=== PATIENT | male | born 1990 | race Caucasian/White ===

== ENCOUNTER 2022-01-30 15:44 | Emergency (ER) | payer BC, SELFPAY ==
[2022-01-30 16:17] LABS: Urine Blood Negative (Negative); Urine Glucose Negative (Negative); Urine Protein Negative (Negative)
[2022-01-30 16:23] LABS: Absolute Lymphocytes (CBC) 1.1 K/uL (0.7-4.9); Hematocrit 44.6 % (39.6-49.0); Lymphocytes % 10.4 % (15.3-44.8); MPV 9.5 fL (7.6-11.3); RBC Red Blood Cell Count 5.01 M/uL (4.33-5.43)
[2022-01-30 16:26] LABS: Protime INR 0.96
[2022-01-30 16:28] LABS: ALT/SGPT 67 U/L (12-78); AST/SGOT 29 U/L (15-37); Albumin 4.4 g/dL (3.4-5.0); Alkaline Phosphatase 54 U/L (45-117); BUN Blood Urea Nitrogen 13 mg/dL (7-18); Bicarbonate 27 mmol/L (21-32); Bilirubin Direct 0.1 mg/dL (0-0.2); Bilirubin Total 0.4 mg/dL (0.2-1.0); Glomerular Filtration Rate 69 ml/min (=/>90); Glucose Level 94 mg/dL (74-106); Potassium 4.1 mmol/L (3.5-5.1); Protein, Total 7.5 g/dL (6.4-8.2); Sodium Level 137 mmol/L (136-145)
[2022-01-30 16:33] LABS: Barbiturates NEGATIVE (NEGATIVE); Benzodiazepines NEGATIVE (NEGATIVE); Cocaine NEGATIVE (NEGATIVE); METHAMPHETAM NEGATIVE (NEGATIVE); Methadone NEGATIVE (NEGATIVE); Opiates NEGATIVE (NEGATIVE); Phencyclidine NEGATIVE (NEGATIVE); THC Cannibis POSITIVE (NEGATIVE)
--- NOTE | 2022-01-30 17:10 | RAD REPORT ---
EXAM DESCRIPTION: CT - Head Brain Wo Cont - 01/30/2022 5:00 pm CLINICAL HISTORY: delirium COMPARISON: None. TECHNIQUE: Computed axial tomography of the head was obtained. IV contrast was not requested. All CT scans are performed using dose optimization technique as appropriate and may include automated exposure control or mA/KV adjustment according to patient size. FINDINGS: An intracranial bleed is not seen . The ventricles are normal in caliber. No significant hypodense areas within the brain visualized No extra-axial fluid collection is noted. Fluid within the sinuses/ mastoids is not seen. IMPRESSION: No acute intracranial abnormality is seen. If patient's symptoms persist MRI of the bra in would be recommended.
[2022-01-30 17:31] LABS: Blood Morphology Comment NOT SEEN (NOT SEEN); Platelet Estimate ADEQ
--- NOTE | 2022-01-30 18:20 | EDPHYS ---
Physician Documentation [facility] Name: Stephen Castillo Age: 31 yrs Sex: Male : 1990 Arrival Date: 01/30/2022 Time: 15:46 Bed 3 Private MD: ED Physician Chon Arthur HPI: 01/30 18:32 This 31 yrs old Male presents to ER via EMS with complaints of Altered Mental Status, kdr COMBATIVE. 18:32 The patient presents with agitation, disorientation. Onset: The symptoms/episode kdr began/occurred suddenly, just prior to arrival, at an unknown time. Possible causes: drug use, marijuana. Associated signs and symptoms: Pertinent positives: agitation, combativeness, confusion. Current symptoms: In the emergency department the patient's symptoms are unchanged from the initial presentation. Patient's baseline: Neuro: alert and fully oriented, Motor: no deficits, Ambulation: walks without assistance. It is unknown whether or not the patient has had similar symptoms in the past. The patient has not recently seen a physician. [place] attempted to restrain the patient with difficult success in route to the hospital. On arrival the patient was clearly altered. He kept trying to lick the people around him. Please officer reported that in route the patient appeared to be attempting to remove his penis. Patient was immediately secured to the bed and sedated.. Historical: - Allergies: 15:51 No Known Allergies; bp - Home Meds: 15:51 Unable to obtain [Active]; bp - PMHx: 15:51 Unable to Obtain; bp - Immunization history:: Last tetanus immunization: unknown. - Social history:: Smoking status: unknown. ROS: 18:32 Constitutional: Negative for fever, chills, and weight loss. kdr 18:32 Unable to obtain ROS due to altered mental status, patient distress, patient's speech is incomprehensible, patient being uncooperative. Exam: 18:32 Constitutional: This is a well developed, well nourished patient who is apparently kdr under the influence of a hallucinogen and in severe acute distress. Head/Face: Normocephalic, atraumatic. Eyes: Pupils equal round and reactive to light, extra-ocular motions intact. Lids and lashes normal. Conjunctiva and sclera are non-icteric and not injected. Cornea within normal limits. Periorbital areas with no swelling, redness, or edema. Neck: Trachea midline, no thyromegaly or masses palpated, and no cervical lymphadenopathy. Supple, full range of motion without nuchal rigidity, or vertebral point tenderness. No Meningismus. Chest/axilla: Normal chest wall appearance and motion. Nontender with no deformity. No lesions are appreciated. Cardiovascular: Regular rate and rhythm with a normal S1 and S2. No gallops, murmurs, or rubs. Normal PMI, no JVD. No pulse deficits. Respiratory: Lungs have equal breath sounds bilaterally, clear to auscultation and percussion. No rales, rhonchi or wheezes noted. No increased work of breathing, no retractions or nasal flaring. Abdomen/GI: Soft, non-tender, with normal bowel sounds. No distension or tympany. No guarding or rebound. No evidence of tenderness throughout. Back: No spinal tenderness. No costovertebral tenderness. Full range of motion. Skin: Warm, dry with normal turgor. Normal color with no rashes, no lesions, and no evidence of cellulitis. MS/ Extremity: Pulses equal, no cyanosis. Neurovascular intact. Full, normal range of motion. 18:32 Neuro: Orientation: unable to test, Mentation: unable to test, Memory: unable to test, Cerebellar function: unable to test, Motor: moves all fours, Sensation: unable to test, Gait: unable to assess. Vital Signs: 15:49 Pulse 87; Resp 14; Temp 98; Pulse Ox 97% ; bp 16:15 BP 110 / 50; Pulse 63; Resp 15; Pulse Ox 95% on R/A; bp 16:45 BP 103 / 45; Pulse 63; Resp 18; Pulse Ox 94% ; bp 17:20 BP 118 / 67; Pulse 108; Resp 14; Pulse Ox 95% on R/A; mb9 MDM: 18:19 Patient medically screened. kdr 18:32 Data reviewed: vital signs, nurses notes, lab test result(s), radiologic studies. kdr Counseling: I had a detailed discussion with the patient and/or guardian regarding: the historical points, exam findings, and any diagnostic results supporting the discharge/admit diagnosis, lab results, radiology results, the need for outpatient follow up. ED course: The patient in a very short period of time regained consciousness and his mental stability. On my reevaluation he was awake and alert and responding to questions appropriately. He stated that he was embarrassed by what it happened. He does not know how this came to be. His drug screen was positive for THC, likely tainted. 01/30 15:54 Order name: Acetaminophen; Complete Time: 18:21 kdr 01/30 15:54 Order name: Basic Metabolic Panel; Complete Time: 18:21 kdr 01/30 15:54 Order name: CBC with Diff; Complete Time: 18:21 kdr 01/30 15:54 Order name: ETOH Level; Complete Time: 18:21 kdr 01/30 15:54 Order name: Hepatic Function; Complete Time: 18:21 kdr 01/30 15:54 Order name: PT-INR; Complete Time: 18:21 kdr 01/30 15:54 Order name: Ptt, Activated; Complete Time: 18:21 kdr 01/30 15:54 Order name: Salicylate; Complete Time: 18:21 kdr 01/30 15:54 Order name: Urine Drug Screen; Complete Time: 18:21 kdr 01/30 15:56 Order name: CT Head Brain wo Cont; Complete Time: 18:21 kdr 01/30 16:17 Order name: Urine Dipstick-Ancillary; Complete Time: 18:21 EDMS 01/30 16:37 Order name: Manual Differential; Complete Time: 18:21 EDMS 01/30 15:54 Order name: EKG; Complete Time: 15:55 kdr 01/30 15:54 Order name: EKG - Nurse/Tech; Complete Time: 16:44 kdr 01/30 15:54 Order name: IV Saline Lock; Complete Time: 15:57 kdr 01/30 15:54 Order name: Labs collected and sent; Complete Time: 16:13 kdr 01/30 15:54 Order name: Suicide Screening ([place]); Complete Time: 16:44 kdr 01/30 15:54 Order name: Urine Dipstick-Ancillary (obtain specimen); Complete Time: 16:18 kdr 01/30 16:06 Order name: Restraint:Violent/Self Destructive (Adult:18yo or >); Complete Time: 16:13 bp 01/30 16:13 Order name: Huizar; Complete Time: 16:13 mb9 Administered Medications: 15:45 Drug: Ativan (LORazepam) 2 mg {Note: given by Charge Erictomasza.} Route: IM; Site: right mb8 deltoid; 16:45 Follow up: Response: No adverse reaction bp 15:45 Drug: Geodon (ziprasidone) 20 mg Route: IM; Site: left vastus lateralis; mb8 16:45 Follow up: Response: No adverse reaction bp Disposition Summary: 01/30/22 18:19 Discharge Ordered Location: Home kdr Problem: new kdr Symptoms: have improved kdr Condition: Stable kdr Diagnosis - Hallucinogen abuse with intoxication with delirium kdr Followup: kdr - With: Private Physician - When: 2 - 3 days - Reason: If symptoms return, Further diagnostic work-up, Recheck today's complaints, Continuance of care, Re-evaluation by your physician Discharge Instructions: - Discharge Summary Sheet kdr - Hallucinogen Use Disorder kdr - Substance Use Disorder kdr Forms: - Medication Reconciliation Form kdr - Thank You Letter kdr Signatures: Dispatcher [employer] EDChon Edwards MD MD kdr Steve Elias RN RN Kade Cole RN RN mb8 Tia Nation RN RN mb9
--- NOTE | 2022-01-30 18:20 | ER ---
Nurse's Notes [facility] Name: Stephen Castillo Age: 31 yrs Sex: Male : 1990 Arrival Date: 01/30/2022 Time: 15:46 Bed 3 Private MD: Diagnosis: Hallucinogen abuse with intoxication with delirium Presentation: 01/30 15:49 Chief complaint: EMS states: OVERDOSE ON UNKNOWN DRUG. Coronavirus screen: At this bp time, the client does not indicate any symptoms associated with coronavirus-19. Ebola Screen: No symptoms or risks identified at this time. Initial Sepsis Screen: Does the patient meet any 2 criteria? No. Patient's initial sepsis screen is negative. Does the patient have a suspected source of infection? No. Patient's initial sepsis screen is negative. Risk Assessment: Do you want to hurt yourself or someone else? Unable to obtain. Onset of symptoms is unknown. 15:49 Method Of Arrival: EMS: [facility] bp 15:49 Acuity: KATALINA 2 bp Triage Assessment: 15:51 General: Appears unkempt, Behavior is combative. Pain: Unable to use pain scale. Does bp not appear to understand pain scale. EENT: No deficits noted. Neuro: Level of Consciousness is COMBATIVE. Oriented to none. Cardiovascular: Rhythm is sinus rhythm. Respiratory: No deficits noted. GI: Abdomen is non-distended. : No signs and/or symptoms were reported regarding the genitourinary system. Derm: No deficits noted. Musculoskeletal: No deficits noted. Historical: - Allergies: 15:51 No Known Allergies; bp - Home Meds: 15:51 Unable to obtain [Active]; bp - PMHx: 15:51 Unable to Obtain; bp - Immunization history:: Last tetanus immunization: unknown. - Social history:: Smoking status: unknown. Screenin:50 Abuse screen: Denies threats or abuse. Denies injuries from another. Nutritional bp screening: No deficits noted. Tuberculosis screening: No symptoms or risk factors identified. Fall Risk None identified. Assessment: 15:50 General: PT COMBATIVE ON SCENE, EN ROUTE AND ON ARRIVAL. PT NON-VERBAL, GRABBING AND bp ATTEMPTING TO BITE. NOT RESPONDING TO VERBAL DIRECTION. RESTRAINTS PLACED x4 FOR PT AND STAFF SAFETY. 16:45 Reassessment: PT RETURNED FROM CT. PT AOx4, CALM AND COOPERATIVE. bp 17:30 Reassessment: Patient appears in no apparent distress at this time. Patient is alert, bp oriented x 3, equal unlabored respirations, skin warm/dry/pink. Patient states symptoms have improved. Vital Signs: 15:49 Pulse 87; Resp 14; Temp 98; Pulse Ox 97% ; bp 16:15 BP 110 / 50; Pulse 63; Resp 15; Pulse Ox 95% on R/A; bp 16:45 BP 103 / 45; Pulse 63; Resp 18; Pulse Ox 94% ; bp 17:20 BP 118 / 67; Pulse 108; Resp 14; Pulse Ox 95% on R/A; mb9 ED Course: 15:46 Patient arrived in ED. eb 15:48 Steve Elias, RN is Primary Nurse. bp 15:50 Patient has correct armband on for positive identification. Bed in low position. Call bp light in reach. Side rails up X2. 15:51 Triage completed. bp 15:53 Arm band placed on left wrist. bp 15:54 Chon Arthur MD is Attending Physician. kdr 16:17 Acetaminophen Sent. mb9 16:17 Basic Metabolic Panel Sent. mb9 16:17 CBC with Diff Sent. mb9 16:17 ETOH Level Sent. mb9 16:17 Hepatic Function Sent. mb9 16:18 PT-INR Sent. mb9 16:18 Ptt, Activated Sent. mb9 16:18 Salicylate Sent. mb9 16:18 Urine Drug Screen Sent. mb9 16:18 Inserted saline lock: 20 gauge in left upper arm, using aseptic technique. Blood mb9 collected. 16:19 Huizar cath inserted, using sterile technique, 16 Fr., by tx, returned clear yellow mb9 urine. Patient tolerated well. 17:02 CT Head Brain wo Cont In Process Unspecified. EDMS 17:41 Huizar cath removed intact, balloon deflated. mb9 19:33 Primary Nurse role handed off by Steve Elias, RN jb4 19:33 Ced Quispe, RICHELLE is Primary Nurse. jb4 Restraints: 15:45 Violent/Self Destructive Restraint: Order: obtained. Initiated January 30, 2022 at bp 15:45 Staff present during the Initiation of Restraint: PAGE PAJosiane, KOREY BOSS, POLLY RN, ROD RN, JUVENAL RN, [facility]. Family Notification/Education: Unable to provide education: PT AOx0. Observed actions/behavior: destructive, violent, severely aggressive, confusion/disorientation, impaired decision making, decreased Level of Consciousness (LOC), unable to follow instructions, Less restrictive alternatives attempted: decreased environmental stimuli, placed near Nurse station, reoriented to location, medicated for pain/anxiety, verbal de-escalation performed, Alternative interventions: Ineffective. Clinical justification for use: Violent/self destructing behavior impacts therapeutic environment. Poses a serious danger to physical safety of self \T\ others. Monitoring: Mental status: agitated/restless, Cognition: poor judgement, poor safety awareness, unable to follow commands, Circulation: Within defined parameters (based on Cardiovascular assessment). Skin integrity: Within defined parameters (based on Integumentary assessment) No injuries due to Restraints noted. Range of Motion: declined. Hydration/Food: patient declined. Elimination/Hygiene: Patient declined. Restraint status: Soft wrist restraint (Right) Started. Soft wrist restraint (Left) Started. Soft ankle restraint (Right) Started. Soft ankle restraint (Left) Started. Readiness for Discontinue: Criteria not met. Patient still violent/self destructive and Alternative interventions still ineffective. Restraint continued. Face to Face Evaluatn: Immediate Situation: PT AGGRESSIVE AND COMBATIVE, NOT FOLLOWING COMMANDS Response of Patient to Restraint: NOT ABLE TO ARTICULATE RESTRAINT RELEASE CRITERIA Medical \T\ Behavioral condition: ALTERED AND COMBATIVE Continue Restraint. MD Notified of Evaluation result: Chon Arthur MD. 16:00 Violent/Self Destructive Restraint: Observed actions/behavior: destructive, violent, bp severely aggressive, confusion/disorientation, impaired decision making, decreased Level of Consciousness (LOC), unable to follow instructions, Less restrictive alternatives attempted: decreased environmental stimuli, placed near Nurse station, reoriented to location, medicated for pain/anxiety, verbal de-escalation performed, Alternative interventions: Ineffective. Clinical justification for use: Violent/self destructing behavior impacts therapeutic environment. Poses a serious danger to physical safety of self \T\ others. Monitoring: Mental status: agitated/restless, Cognition: poor judgement, poor safety awareness, unable to follow commands, Circulation: Within defined parameters (based on Cardiovascular assessment). Skin integrity: Within defined parameters (based on Integumentary assessment) No injuries due to Restraints noted. Restraint status: Soft wrist restraint (Right) Continued. Soft wrist restraint (Left) Continued. Soft ankle restraint (Right) Continued. Soft ankle restraint (Left) Continued. Readiness for Discontinue: Criteria not met. Patient still violent/self destructive and Alternative interventions still ineffective. Restraint continued. 16:15 Violent/Self Destructive Restraint: Observed actions/behavior: destructive, violent, bp severely aggressive, confusion/disorientation, impaired decision making, decreased Level of Consciousness (LOC), unable to follow instructions, Less restrictive alternatives attempted: decreased environmental stimuli, placed near Nurse station, reoriented to location, medicated for pain/anxiety, verbal de-escalation performed, Alternative interventions: Ineffective. Clinical justification for use: Violent/self destructing behavior impacts therapeutic environment. Poses a serious danger to physical safety of self \T\ others. Monitoring: Mental status: agitated/restless, Cognition: poor judgement, poor safety awareness, unable to follow commands, Circulation: Within defined parameters (based on Cardiovascular assessment). Skin integrity: Within defined parameters (based on Integumentary assessment) No injuries due to Restraints noted. Restraint status: Soft wrist restraint (Right) Continued. Soft wrist restraint (Left) Continued. Soft ankle restraint (Right) Continued. Soft ankle restraint (Left) Continued. Readiness for Discontinue: Criteria not met. Patient still violent/self destructive and Alternative interventions still ineffective. Restraint continued. 16:30 Violent/Self Destructive Restraint: Observed actions/behavior: bp confusion/disorientation, impaired decision making, decreased Level of Consciousness (LOC), unable to follow instructions, Less restrictive alternatives attempted: decreased environmental stimuli, placed near Nurse station, reoriented to location, medicated for pain/anxiety, verbal de-escalation performed, Alternative interventions: Ineffective. Clinical justification for use: Violent/self destructing behavior impacts therapeutic environment. Poses a serious danger to physical safety of self \T\ others. Monitoring: Mental status: confused. Cognition: poor judgement, poor safety awareness, unable to follow commands, Circulation: Within defined parameters (based on Cardiovascular assessment). Skin integrity: Within defined parameters (based on Integumentary assessment) No injuries due to Restraints noted. Restraint status: Soft wrist restraint (Right) Continued. Soft wrist restraint (Left) Continued. Soft ankle restraint (Right) Continued. Soft ankle restraint (Left) Continued. Readiness for Discontinue: Criteria not met. Patient still violent/self destructive and Alternative interventions still ineffective. Restraint continued. 16:45 Violent/Self Destructive Restraint: Monitoring: Mental status: subdued, Cognition: bp appropriate judgement, appropriate safety awareness, appropriate for developmental age, appropriate attention/concentration, follow commands, Circulation: Within defined parameters (based on Cardiovascular assessment). Skin integrity: Within defined parameters (based on Integumentary assessment) No injuries due to Restraints noted. Range of Motion: Performed. Hydration/Food: Meal/Snack provided:tolerated. PO fluids provided:tolerated. Restraint status: Soft wrist restraint (Right) Discontinued. Soft wrist restraint (Left) Discontinued. Soft ankle restraint (Right) Discontinued. Soft ankle restraint (Left) Discontinued. Readiness for Discontinue: Release criteria met. No longer exhibiting violent or self destructive behavior. Alt interventions effective. Restraint discontinuation: Discontinued at January 30, 2022 at 16:45 Debriefing: Conducted: Yes Staff in attendance: KOREY BOSS, POLLY RN. Success/Problems/Necessary Modifications: SUCCESS, PT AOx4, CALM AND APPROPRIATE. Administered Medications: 15:45 Drug: Ativan (LORazepam) 2 mg {Note: given by Charge Jahala.} Route: IM; Site: right mb8 deltoid; 16:45 Follow up: Response: No adverse reaction bp 15:45 Drug: Geodon (ziprasidone) 20 mg Route: IM; Site: left vastus lateralis; mb8 16:45 Follow up: Response: No adverse reaction bp Medication: 16:45 VIS not applicable for this client. bp Outcome: 18:19 Discharge ordered by . kdr 19:33 Patient left the ED. jb4 Signatures: Dispatcher [employer] EDMS Chon Arthur MD MD kdr Bryson, James RN RN jb4 Steve Elias RN RN Shey Aaron Michael, RN RN mb8 Tia Nation RN RN mb9 Corrections: (The following items were deleted from the chart) 17:21 17:20 BP 103 / 45; Pulse 62bpm; Resp 14bpm; Pulse Ox 95% RA; mb9 mb9
[2022-01-30 19:48] VITALS: TEMP 98
[2022-01-30 20:01] VITALS: BP 118/67; O2SAT 95
== END 2022-01-30 19:33 | disposition home or self-care (01) ==
LOC: ER 15:44
DX: R44.3 Hallucinations, unspecified (principal); F19.921 Other psychoactive substance use, unspecified with intoxication with delirium; T50.905A Adverse effect of unspecified drugs, medicaments and biological substances, initial encounter
CPT/HCPCS: 36415; 51702; 70450; 80048; 80076; 80307; 80320; 80329; 81003; 85025; 85610; 85730; 96372; 99285